=== PATIENT | male | born 1945 | race Caucasian/White ===

== ENCOUNTER → 2020-04-12 10:05 | Outpatient (CLI) | payer MEDICARE, SELFPAY ==
--- NOTE | ~2020-04-12 | MR_ITS ---
EXAMINATION: MR knee LT wo con DATE: 04/12/2020 10:41 INDICATION: Left knee pain TECHNIQUE: Magnetic resonance imaging (MRI) of the left knee was performed without intravenous contra st. Sequences included coronal PD-weighted FSE, coronal PD-weighted FS FSE, sagittal T2-weighted FSE , sagittal PD-weighted FS FSE and axial PD weighted fat saturated FSE. COMPARISON: None. FINDINGS: Medial compartment: Complex tear of medial meniscal tear which includes both a longitudinal horizontal tear plane extendi ng to the inferior articular surface of the body and posterior horn as well as a vertical parrot-beak configuration tear plane at the medial meniscal body. Articular cartilage is normal. Lateral compartment: Lateral meniscus is normal. Small region of partial-thickness chondral fissuring at the posterior asp ect of the lateral tibial plateau underlying the posterior horn of the lateral meniscus. Patellofemoral compartment: Cartilage thickness is relatively preserved but with small region of deep fissuring at the lateral si de of the medial patellar facet with tiny focus of underlying subarticular edema. Similar the trochle ar cartilage is relatively preserved with very small region of fissuring with minimal underlying suba rticular edema at the cephalad margin of the lateral trochlea. Ligaments and tendons: Anterior and posterior cruciate ligaments are normal. The medial collateral ligament and fibular claudia ateral ligament complex are normal. The extensor mechanism is normal. The visualized medial and later al hamstring tendons as well as the iliotibial band are normal. Fluid: Physiologic amount of fluid in the joint space. No loose osteochondral bodies identified. Osseous/other: Normal marrow signal aside from the previous noted tiny foci of subarticular edema in the patellofemo ral compartment. Likely degenerative subarticular cystic change at the posterior medial head of the f ibula likely related to mild osteoarthritis at the proximal tibiofibular articulation. No fracture or pathologic marrow replacing process. IMPRESSION: 1. Complex medial meniscal tear. 2. 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 Reviewed, dictated and finalized at location B. PRESIDENT OF COMPLIANCE IMPRESSION: 1. Complex medial meniscal tear. 2. Minimal osteoarthritis with small region of moderate grade chondromalacia al zack the lateral tibial plateau and small regions of high-grade chondromalacia a t the medial patellar facet and lateral trochlea.
== END ==
PROVIDERS: PCP Emergency Medicine; Visit Provider Nurse Practitioner Family
DX: M25.562 Pain in left knee (principal); S83.232A Complex tear of medial meniscus, current injury, left knee, initial encounter; M17.12 Unilateral primary osteoarthritis, left knee; M94.262 Chondromalacia, left knee
CPT/HCPCS: 73721

== ENCOUNTER → 2020-05-06 01:53 | Outpatient (CLI) | payer MEDICARE, SELFPAY ==
[2020-05-06 20:23] LABS: SARS-CoV-2 RNA PCR Negative
== END ==
PROVIDERS: PCP Emergency Medicine; Visit Provider Orthopaedic Surgery
DX: Z01.812 Encounter for preprocedural laboratory examination (principal); Z20.822 Contact with and (suspected) exposure to COVID-19
CPT/HCPCS: C9803; U0003; U0005

== ENCOUNTER 2020-05-09 01:18 | Day surgery (SDC) | payer MEDICARE, SELFPAY ==
[2020-05-03 12:38] VITALS: BMI 25.1
--- NOTE | 2020-05-08 11:13 | WPDANESEPPF ---
Anes - Initial Pre Proc Eval Procedure: Operation Date: 05/09/20 12:00 Proposed Procedures p Left Knee Arthroscopy, Right Knee Injection Proceed As Indicated - Fred Jolley MD Date/Time: 05/08/20 11:13 Surgeon: Fred Jolley MD Pre Op Diagnosis: left knee medial meniscus tear, Right knee djd Patient Data Age: 74 Gender: M Height: 1.8 m Weight: 81.8 kg Allergies Allergy/AdvReac Type Severity Reaction Status Date / Time No Known Allergies Allergy Verified 05/09/20 10:08 Home Medications Medication Instructions Recorded Confirmed Type aspirin 325 mg tablet 325 mg PO DAILY 03/30/20 05/09/20 History calcium carbonate 400 mg calcium 800 mg PO DAILY 03/30/20 05/09/20 History (1,000 mg) chewable tablet cholecalciferol (vitamin D3) 25 25 mcg PO DAILY 03/30/20 05/09/20 History mcg (1,000 unit) capsule losartan 25 mg tablet 25 mg PO DAILY 03/30/20 05/09/20 History metoprolol tartrate 25 mg tablet 25 mg PO DAILY 03/30/20 05/09/20 History omega-3 fatty acids 1,000 mg 1,000 mg PO DAILY 03/30/20 05/09/20 History capsule chlorhexidine gluconate 4 % 1 applic TOPICAL ONCE #237 ml 04/20/20 Rx topical liquid [id number]-marbin-bosw 1 tablet PO DAILY 05/03/20 05/09/20 History [Glucosamine-Chondroitin 3X] rosuvastatin 20 mg PO HS 05/03/20 05/09/20 History [id number] 1 cap PO DAILY 05/03/20 05/09/20 History vitamin K2 100 mcg PO DAILY 05/03/20 05/09/20 History Patient hx anesthesia problems: none Family hx anesthesia problems: none PMFSH Past Medical History Medical History (Updated 05/08/20 @ 11:13 by Zheng Smith MD) Abnormality of heart beat CAD (coronary artery disease) Heart attack High cholesterol History of MRSA infection History of postoperative complication of surgical procedure Hypertension Left knee pain Light headedness Medial meniscus tear Osteoporosis Surgical History Surgical History (Updated 05/08/20 @ 11:13 by Zheng Smith MD) History of heart surgery S/P CABG (coronary artery bypass graft) Family History Family History Other Cerebrovascular accident Heart disease High cholesterol Hypertension Social History Social History Smoking packs per day: 1 Smoking cigarettes per day: 20.0 Years smoked: 6 Smoking pack-years: 6.00 Smoking status: Former smoker Smoking end date: 05/03/70 Alcohol intake: current Drinks per week: 4 Substance use: never Substance use type: does not use Living arrangements: with family Gender identity (if verbalized by the patient): Male Spiritual care concerns: No Anes - Eval Final PreProcedure Day of Procedure 05/08/20 11:13 Patient weight: normal Heart: regular rate and rhythm Lungs: clear to auscultation and normal air movement Airway: Mallampati scale class II Neurological: alert and oriented Last oral intake: >/= 8 hours ASA classification: III Emergent: no Anesthetic plan: proceed Anesthesia type and monitoring: general LMA Informed Consent: The patient's anesthetic plan and its attendant risks and benefits were discussed with the patient/family/POA. Questions were solicited and answers provided to the satisfaction of the patient/family/POA.
[2020-05-09] VITALS (7 sets, daily range): BP systolic 128–178; BP diastolic 65–108; PULSE 54–67; RESP 12–16; TEMP 35.8; O2SAT 98–100
--- NOTE | 2020-05-09 07:23 | WPDHPUPDATE1 ---
History and Physical Update Update Date/Time: 05/09/20 07:23 History and Physical has been reviewed, including an updated exam of the patient. There are NO changes in the patient's condition. Risks, benefits, and alternatives have been discussed and questions answered. Patient agrees to proceed with procedure.
--- NOTE | 2020-05-09 10:19 | SUR.PREOP ---
Dr. Smith and Dr. Jolley aware of left ring finger wedding ring unable to be removed. Patient has signed removal waiver.
[2020-05-09] MEDS: ACETAMINOPHEN 500 MG TABLET 1000 MG PO (10:25)
[2020-05-09] MEDS: CELECOXIB 200 MG CAPSULE PO (10:25)
[2020-05-09] MEDS: LACTATED RINGERS 1,000 ML 30 ML IV CONT ×2 (10:26→13:56)
--- NOTE | 2020-05-09 10:45 | SUR.PREOP ---
crutch training completed. printed instructions given to patient for reference.
[2020-05-09] MEDS: ceFAZolin 2 GM/D5W 50 ML 2 GM/50 ML BAG IVPB (12:34)
[2020-05-09] MEDS: BUPIVACAINE HCL 0.5% PF 30 ML VIAL INFILTRATE (12:52)
[2020-05-09] MEDS: BUPIVACAINE HCL 0.5% PF 30 ML VIAL 5 ML INFILTRATE (13:09)
[2020-05-09] MEDS: methylPREDNISolone ACETATE 80 MG/ML VIAL IM (13:09)
--- NOTE | 2020-05-09 13:53 | PM.PROC ---
Procedure Note - Detailed Date of procedure: 05/09/20 Pre-op diagnosis: left knee medial meniscus tear, Right knee djd Post-op diagnosis: same Procedure performed: LEFT KNEE SCOPE WITH PARTIAL MEDIAL MENISCECTOMY AND MAJOR SYNOVECTOMY Description of procedure: PATIENT WAS TAKEN TO THE OR. LEFT LEG WAS PREPPED AND DRAPED STERILE. TROCARS WERE PLACED IN THE USUAL FASHION. CAMERA WAS INTRODUCED. THERE WAS CHONDROMALACIA TO THE PATELLA FEMORAL JOINT. THERE WAS A LOT OF SYNOVITIS IN ALL COMPARTMENTS. THE MEDIAL COMPARTMENT SHOWED CHONDROMALACIA TO THE MEDIAL FEMORAL CONDYLE. A SHAVER WAS USED TO PREFORM A CHONDROPLASTY. THERE WAS A COMPLEX MEDIAL MENISCUS TEAR. THE TEAR WAS RESECTED WITH A BITER AND A SHAVER DOWN TO A SMOOTH BASE. ABOUT 25% OF THE MENISCUS WAS REMOVED. THE ACL WAS INTACT. THE PATELLO FEMORAL JOINT UNDERWENT CHONDROPLASTY. THERE WAS GRADE 3 CHONDROMALACIA IN MOST OF THE TROCHLEA AND PART OF THE PATELLA. SYNOVECTOMY WAS PREFORMED IN THE SUPERIOR MEDIAL COMPARTMENT. THE WOUNDS WERE APPROXIMATED WITH 4.0 NYLON. STERILE DRESSING WAS APPLIED. PATIENT WAS EXTUBATED. Anesthesia: GLMA Surgeon: Fred Jolley MD Estimated blood loss (mL): 5 Complications: No immediate complications Condition: stable Disposition: PACU
[2020-05-09] MEDS: oxyCODONE HCL (*CRX) 5 MG TAB IR PO (15:18)
--- NOTE | 2020-05-09 15:29 | SUR.PHASEII ---
DR. HAWKINS NOTIFIED RE: PATIENT'S ELEVATED BLOOD PRESSURES; OKAY'D TO GO HOME.
== END 2020-05-09 16:10 | disposition home or self-care (01) ==
PROVIDERS: PCP Emergency Medicine; Visit Provider Orthopaedic Surgery
PROC: (CPT 29870; principal; 2020-05-09 12:00)
DX: M23.92 Unspecified internal derangement of left knee (principal); M65.862 Other synovitis and tenosynovitis, left lower leg; I11.9 Hypertensive heart disease without heart failure; E78.00 Pure hypercholesterolemia, unspecified; M81.0 Age-related osteoporosis without current pathological fracture; Z87.891 Personal history of nicotine dependence; Z79.82 Long term (current) use of aspirin; I25.10 Atherosclerotic heart disease of native coronary artery without angina pectoris; M94.262 Chondromalacia, left knee
CPT/HCPCS: 29881; 29876; A9270; C9803; J0690; J1040; J1100; J2405; J2704; J3010; J7120; U0003; U0005

== ENCOUNTER 2021-02-27 08:28 | Emergency (ER) | payer MEDICARE, SELFPAY ==
--- NOTE | ~2021-02-27 | XR_ITS ---
EXAMINATION: XR chest 1V portable EXAM DATE: 02/27/2021 09:45 INDICATION: cough and sob . TECHNIQUE: Portable AP frontal chest x-ray was obtained. There is no prior study for comparison. FINDINGS: Sternotomy wires are present without findings to suggest sternal dehiscence. Patchy ill-def ined bibasilar atelectasis or pneumonia. No pneumothorax or pleural effusion. There are bony degenera tive changes. IMPRESSION: Patchy bilateral ill-defined atelectasis an/or pneumonia. Reviewed, dictated and finalized at location B. 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
[2021-02-27 08:40] VITALS: BP 154/94; PULSE 114; RESP 24; TEMP 37.1
[2021-02-27 09:36] LABS: Basophils Percent Auto 0.4 % (0.2-1.2); Eosinophils Absolute Auto 0.1 K/mm3 (0-0.3); Eosinophils Percent Auto 1.3 % (0-4.4); Hematocrit 38.1 % (42.0-52.0); Hemoglobin 12.8 g/dL (14.0-18.0); Immature Granulocyte Absolute 0.03 K/mm3 (0.00-0.031); Immature Granulocyte Percent A 0.4 % (0-0.5); Lymphocytes Percent Auto 10.7 % (18.3-44.2); Mean Corpuscular HGB Conc 33.6 g/dl (32-36); Mean Corpuscular Hemoglobin 30.9 pg (26-34); Monocytes Absolute Auto 1.2 K/mm3 (0.1-0.6); Monocytes Percent Auto 13.6 % (2.6-8.5); Neutrophils Absolute Auto 6.2 K/mm3 (1.3-6.7); Neutrophils Percent Auto 73.6 % (45.5-73.1); Platelet Count Result 185 k/mm3 (150-375); Red Blood Count 4.14 M/mm3 (4.6-6.20); Red Cell Distribution Width 13.6 % (11.5-14.5); White Blood Count 8.4 K/mm3 (4.5-10.0)
[2021-02-27 09:49] LABS: Alanine Aminotransferase 20 U/L (4-50); Albumin Level 3.9 g/dL (3.5-5.1); Alkaline Phosphatase 76 U/L (38-126); Anion Gap 6 mmol/L (8-16); Aspartate Amino Transferase 30 U/L (17-59); Bilirubin,Total 0.6 mg/dL (0.2-1.3); Blood Urea Nitrogen 18 mg/dL (9-20); Calcium 8.7 mg/dL (8.4-10.2); Carbon Dioxide 28 mmol/L (22-30); Chloride 102 mmol/L (98-107); Estimated Glomerular Filt Rate > 60; Glucose 112 mg/dL (65-110); Potassium 4.6 mmol/L (3.4-5.0); Sodium 136 mmol/L (137-145)
--- NOTE | 2021-02-27 10:15 | ED.GENADULT ---
HPI - General Adult General Chief complaint: Upper Respiratory Infection Stated complaint: cough Time Seen by Provider: 02/27/21 09:16 Source: patient Mode of arrival: ambulatory Limitations: no limitations History of Present Illness HPI narrative: Patient is a 75-year-old fully vaccinated male presenting with chief complaint cough, congestion, body aches that began last night. Patient reports that he presented to the emergency department as he thought that he can receive monoclonal antibodies. Patient denies fever, chest pain, shortness of breath, syncope, dizziness, palpitations, inability to eat or drink. Patient reports that he has had exposures positive for COVID recently. Patient denies any other emergent symptoms. Patient reports that he did not take his home medications including his beta-luís and blood pressure medications emergency room arrival. Related Data Home Medications Medication Instructions Recorded Confirmed aspirin 325 mg tablet 325 mg PO DAILY 03/30/20 05/25/20 calcium carbonate 400 mg calcium 800 mg PO DAILY 03/30/20 05/25/20 (1,000 mg) chewable tablet cholecalciferol (vitamin D3) 25 25 mcg PO DAILY 03/30/20 05/25/20 mcg (1,000 unit) capsule losartan 25 mg tablet 25 mg PO DAILY 03/30/20 05/25/20 metoprolol tartrate 25 mg tablet 25 mg PO DAILY 03/30/20 05/25/20 omega-3 fatty acids 1,000 mg 1,000 mg PO DAILY 03/30/20 05/25/20 capsule [id number]-[id number]-C-marbin-bosw 1 tablet PO DAILY 05/03/20 05/25/20 [Glucosamine-Chondroitin 3X] rosuvastatin 20 mg PO HS 05/03/20 05/25/20 [id number] 1 cap PO DAILY 05/03/20 05/25/20 vitamin K2 100 mcg PO DAILY 05/03/20 05/25/20 Allergies Allergy/AdvReac Type Severity Reaction Status Date / Time No Known Allergies Allergy Verified 02/27/21 08:49 Review of Systems Review of Systems: CONSTITUTIONAL: Denies fever, chills, or sweats. EYES: Denies visual changes, redness, or discharge. ENT: Reports rhinorrhea, congestion, denies sore throat, or otalgia. CARDIOVASCULAR: Denies chest pain, palpitations, or edema. RESPIRATORY: Reports cough denies dyspnea. GASTROINTESTINAL: Denies abdominal pain, nausea, vomiting, or diarrhea. GENITOURINARY: Denies dysuria or hematuria. SKIN: Denies rash or itching. MUSCULOSKELETAL: Denies back pain, joint pain, or myalgia. NEUROLOGIC: Denies headache, numbness, dizziness, or weakness. PSYCHIATRIC: Denies anxiety or depression. [facility] Past Medical History Medical History Abnormality of heart beat CAD (coronary artery disease) Heart attack High cholesterol History of MRSA infection History of postoperative complication of surgical procedure Hypertension Left knee pain Light headedness Medial meniscus tear Osteoporosis Surgical History Surgical History History of heart surgery S/P CABG (coronary artery bypass graft) Family History Family History Other Cerebrovascular accident Heart disease High cholesterol Hypertension Social History Social History Smoking packs per day: 1 Smoking cigarettes per day: 20.0 Years smoked: 6 Smoking pack-years: 6.00 Smoking status: Former smoker Smoking end date: 05/03/70 Alcohol intake: current Drinks per week: 4 Substance use: never Substance use type: does not use Gender identity (if verbalized by the patient): Male Spiritual care concerns: No Exam Narrative: GENERAL: Well-appearing, well-nourished, and in no acute distress. HEAD: Normocephalic, atraumatic. EYES: PERRLA and EOMI. CHEST: Clear to auscultation. No respiratory distress. No wheezes rales or rhonchi. Speaking in clear sentences without difficulty. Dry cough noted during exam. HEART: Regular rate and rhythm. No murmur heard. Normal periphera
[2021-02-27] MEDS: BENZONATATE 100 MG CAPSULE 200 MG PO (10:35)
[2021-02-27 10:42] VITALS: BP 128/73; PULSE 111; RESP 18; O2SAT 97
[2021-02-27 19:52] LABS: SARS-CoV-2 RNA PCR Positive
== END 2021-02-27 10:44 | disposition home or self-care (01) ==
PROVIDERS: Physician Assistant; Emergency Provider Emergency Medicine; PCP Emergency Medicine
DX: U07.1 COVID-19 (principal); I25.10 Atherosclerotic heart disease of native coronary artery without angina pectoris; I25.2 Old myocardial infarction; E78.00 Pure hypercholesterolemia, unspecified; Z86.14 Personal history of Methicillin resistant Staphylococcus aureus infection; I10 Essential (primary) hypertension; M81.0 Age-related osteoporosis without current pathological fracture; Z95.1 Presence of aortocoronary bypass graft; Z87.891 Personal history of nicotine dependence; Z79.82 Long term (current) use of aspirin; R91.8 Other nonspecific abnormal finding of lung field
CPT/HCPCS: 36415; 71045; 80053; 85025; 87804; 99283; A9270; C9803; U0003; U0005

== ENCOUNTER 2022-10-12 20:44 | Emergency (ER) | payer MEDICARE, SELFPAY ==
--- NOTE | ~2022-10-12 | CT_ITS ---
Non-contrast Head CT History: Status post fall Technique: Axial non-contrast imaging of the brain was performed. Dose reduction technique was used on this scan by utilizing automated exposure control and iterative reconstruction technique. The dose -length product (DLP) was 605.33 mGy-cm. Findings: There is no evidence of intracranial hemorrhage, mass lesion, or acute infarct. Brain par enchyma appears normal. The ventricles and subarachnoid spaces are normal in size. The calvarium ap pears normal. The visualized paranasal sinuses and mastoid air cells are clear. Impression: No significant abnormality seen. Reviewed, dictated and finalized at location . Impression: No significant abnormality seen.
--- NOTE | ~2022-10-12 | XR_ITS ---
Portable chest x-ray Comparison: 02/27/2021 Clinical History: Syncope Findings: There is mild bibasilar haziness. Calcified left basilar granuloma present. Cardiomediast inal silhouette is stable. Cardiac loop recorder present. Bones and soft tissues are unremarkable. Impression: Possible minimal bibasilar pulmonary edema. Cardiac loop recorder. Reviewed, dictated and finalized at location . Impression: Possible minimal bibasilar pulmonary edema. Cardiac loop recorder.
--- NOTE | ~2022-10-12 | CT_ITS ---
Noncontrast CT scan of the cervical spine Technique: Multiple contiguous axial [address] images of the cervical spine were obtained and rec onstructed in 2D sagittal and coronal planes on the acquisition scanner. Dose reduction technique was used on this scan by utilizing automated exposure control, adjustment of the mA and/or kV according to patient size. The dose-length product (DLP) was 596.76 mGy-cm. Clinical History: Pain Findings: No fracture identified. There is a minimal grade 1 retrolisthesis of C5 over C6.. There is mild degenerative disc changes C5-C6. There is probable mild bilateral neural foraminal narrowing at C5-C6. No prevertebral soft tissue swelling. Impression: No fracture or subluxation of the cervical spine. Reviewed, dictated and finalized at [facility]. Impression: No fracture or subluxation of the cervical spine.
[2022-10-12 20:41] VITALS: BP 139/79; PULSE 70; RESP 16; TEMP 37.2; O2SAT 97
--- NOTE | 2022-10-12 21:23 | ECG_ITS ---
Measurements Intervals Golf Rate: 78 P: 82 GA: 223 QRS: -17 QRSD: 109 T: 82 QT: 362 QTc: 414 Interpretive Statements SINUS RHYTHM WITH FIRST DEGREE AV BLOCK DELAYED PRECORDIAL R/S TRANSITION LEFT VENTRICULAR HYPERTROPHY WITH ST-T CHANGE INFERIOR INFARCT, AGE INDETERMINATE ABNORMAL ECG NO PREVIOUS ECG AVAILABLE FOR COMPARISON Electronically Signed On 10-13-2022 7:13:57 CDT by Kai Willis D.O.
[2022-10-12] MEDS: SODIUM CHLORIDE 0.9% IV 2,000 ML 999 ML IV CONT (21:40)
[2022-10-12] MEDS: TETANUS,DIPHTHERIA,AC PERTUSSIS ADULT (0.5 ML) BOOSTRIX IM (21:40)
[2022-10-12 21:51] VITALS: PULSE 74; RESP 15; O2SAT 100
[2022-10-12 22:04] LABS: Basophils Percent Auto 0.3 % (0.2-1.2); Eosinophils Absolute Auto 0.1 K/mm3 (0-0.3); Eosinophils Percent Auto 0.4 % (0-4.4); Hematocrit 40.3 % (42.0-52.0); Hemoglobin 13.5 g/dL (14.0-18.0); Immature Granulocyte Absolute 0.09 K/mm3 (0.00-0.031); Immature Granulocyte Percent A 0.6 % (0-0.5); Lymphocytes Absolute Auto 2.05 K/mm3 (0.9-3.2); Lymphocytes Percent Auto 12.9 % (18.3-44.2); Mean Corpuscular HGB Conc 33.5 g/dl (32-36); Mean Corpuscular Hemoglobin 31.9 pg (26-34); Mean Corpuscular Volume 95.3 fl (80-100); Mean Platelet Volume 9.8 fl (7.4-10.4); Monocytes Absolute Auto 1.8 K/mm3 (0.1-0.6); Monocytes Percent Auto 11.1 % (2.6-8.5); Neutrophils Absolute Auto 11.9 K/mm3 (1.3-6.7); Neutrophils Percent Auto 74.7 % (45.5-73.1); Platelet Count Result 196 k/mm3 (150-375); Red Blood Count 4.23 M/mm3 (4.6-6.20); Red Cell Distribution Width 13.4 % (11.5-14.5); White Blood Count 15.9 K/mm3 (4.5-10.0)
[2022-10-12 22:12] LABS: INR 1.1; Partial Thromboplastin Time 31.5 SECONDS (22.3-36.8); Prothrombin Time 15.1 Seconds (11.1-14.7)
[2022-10-12 22:15] LABS: Alanine Aminotransferase 30 U/L (6-50); Albumin Level 4.3 g/dL (3.5-5.1); Alkaline Phosphatase 57 U/L (38-126); Anion Gap 8 mmol/L (8-16); Aspartate Amino Transferase 35 U/L (17-59); Bilirubin,Total 0.5 mg/dL (0.2-1.3); Blood Urea Nitrogen 27 mg/dL (9-20); Calcium 9.3 mg/dL (8.4-10.2); Carbon Dioxide 30 mmol/L (22-30); Chloride 101 mmol/L (98-107); Estimated CRCL calculation 42 ml/min; Estimated Glomerular Filt Rate 49; Ethanol < 10 mg/dL (<10); Glucose 116 mg/dL (65-110); Magnesium 2.3 mg/dL (1.6-2.3); Potassium 4.8 mmol/L (3.4-5.0); Sodium 139 mmol/L (137-145)
[2022-10-12] MEDS: HYDROcodone/acetaminophen (*CRX) 5-325 MG TABLET 1 TAB PO (22:19)
[2022-10-12 22:23] LABS: NT Pro B Type Natriuretic Pept 348 pg/mL (19.9-100)
[2022-10-12 22:26] LABS: Troponin I < 0.012 ng/mL (0.000-0.034)
[2022-10-12 22:27] LABS: Appearance Urine Cloudy (Clear); Bacteria Urine None Seen /hpf; Bilirubin Urine Negative (Negative); Blood Urine Negative (Negative); Color Urine Yellow (Yellow); Glucose Urine UA Negative (Negative); Hyaline Casts Urine Present /lpf; Ketones Urine Trace mg/dL (Negative); Leukocyte Esterase Ur Negative LEU/UL (Negative); Nitrate Urine Negative (Negative); Non Pathogenic Casts >20; Protein Urine 1+ mg/dL (Negative); RBC Urine 0-2 /hpf (0-2); Specific Grav Ur 1.021 (1.001-1.035); Squamous Epithelial Cell Urine None seen /hpf (Few); Urobilinogen Urine 0.2 mg/dL (<2.0); WBC Urine 0-5 /hpf; pH Urine 5.5 (5.0-9.0)
[2022-10-12 22:28] LABS: Add Urine Microscopic? YES
--- NOTE | 2022-10-12 23:30 | ED.GENADULT ---
HPI - General Adult General Chief complaint: Fall Stated complaint: syncope Time Seen by Provider: 10/12/22 21:05 History of Present Illness HPI narrative: This is a 76-year-old male presenting ED with chief complaint of syncope. The patient was working on a transmission all day in his garage. It was 85? out. The patient was sweaty and exhausted the end of the day. While he was in the shower he started to feel faint and fell and And struck his head. He sustained a laceration to his forehead x2 and scalp. patient is on a Eliquis for AFib/a flutter. Patient was then getting ready to come the hospital and had another syncopal event when he tried to stand up from a chair. Patient is currently denying chest pain difficulty breathing, vision changes abdominal pain numbness tingling weakness in any extremity. Related Data Home Medications Medication Instructions Recorded Confirmed calcium carbonate 400 mg calcium 800 mg PO DAILY 03/30/20 07/16/22 (1,000 mg) chewable tablet (Antacid Ultra Strength) cholecalciferol (vitamin D3) 25 25 mcg PO DAILY 03/30/20 07/16/22 mcg (1,000 unit) capsule ubiquinol 200 mg-B12 5 mg-folic 1 cap PO DAILY 05/03/20 07/16/22 acid 0.8 mg-resveratrol 400 mg capsule vitamin K2 100 mcg capsule 100 mcg PO DAILY 05/03/20 07/16/22 aspirin 81 mg tablet,delayed 325 mg PO DAILY 01/15/22 07/16/22 release Allergies Allergy/AdvReac Type Severity Reaction Status Date / Time No Known Allergies Allergy Verified 10/12/22 20:54 [facility] Past Medical History Medical History Abnormality of heart beat CAD (coronary artery disease) Heart attack Heart disease High cholesterol History of MRSA infection History of postoperative complication of surgical procedure Hypertension Hypertension Left knee pain Light headedness Medial meniscus tear [place] (myocardial infarction) Osteoporosis Person under investigation for COVID-19 Surgical History Surgical History History of heart surgery S/P CABG (coronary artery bypass graft) Family History Family History Other Carcinoma of colon Cerebrovascular accident Heart disease High cholesterol Hypertension Social History Social History Smoking packs per day: 1 Smoking cigarettes per day: 20.0 Years smoked: 6 Smoking pack-years: 6.00 Smoking status: Former smoker Smoking end date: 05/03/70 Alcohol intake: current Drinks per week: 4 Alcohol use details: Beer and wine Substance use: never Substance use type: does not use Lack of Transportation: No Lack of Food: Never True Current Housing: I Have Housing Concerned About Future Housing: No Difficulty Paying Gas/Electric Bills: No Difficulty Paying for Meds: No Currently Unemployed: No Education: High School Diploma/GED Difficulty w/ Childcare or Family Care: No Living arrangements: with family Occupation/Education: retired Gender identity (if verbalized by the patient): Male Sexual Orientation (if Verbalized by the Patient): Straight or Heterosexual Spiritual care concerns: No Exam Narrative: APPEARANCE: No apparent distress. Head: 4 cm vertical laceration over the center the patient's forehead, 2.6 cm horizontal laceration over the patient's right forehead, 2 cm laceration over the left scalp, skin tear over the right scalp EYES: EOMI, NOSE: Atraumatic NECK: Trachea midline RESPIRATORY: No increased rate of breathing, clear to auscultation CARDIOVASCULAR: RRR, no peripheral edema ABDOMINAL: Non-distended in rebound MUSCULOSKELETAl: No obvious deformities NEURO: Alert. Cranial nerves 2-12 grossly intact. Sensation light touch, motor function cerebellar function intact for 4 extremities. Gait exam was normal. SKIN:: Warm,
[2022-10-13 01:10] LABS: Troponin I < 0.012 ng/mL (0.000-0.034)
== END 2022-10-13 02:00 | disposition home or self-care (01) ==
PROVIDERS: Emergency Provider Emergency Medicine; PCP Family Medicine
DX: S01.01XA Laceration without foreign body of scalp, initial encounter (principal); S01.81XA Laceration without foreign body of other part of head, initial encounter; E86.0 Dehydration; R55 Syncope and collapse; I48.91 Unspecified atrial fibrillation; I25.10 Atherosclerotic heart disease of native coronary artery without angina pectoris; I11.9 Hypertensive heart disease without heart failure; I25.2 Old myocardial infarction; Z79.01 Long term (current) use of anticoagulants; Z87.891 Personal history of nicotine dependence; Z23 Encounter for immunization; Z79.899 Other long term (current) drug therapy; Z95.1 Presence of aortocoronary bypass graft; W18.2XXA Fall in (into) shower or empty bathtub, initial encounter
CPT/HCPCS: 12001; 12013; 36415; 70450; 71045; 72125; 80053; 80307; 81001; 83735; 83880; 84484; 85025; 85610; 85730; 90471; 90715; 93005; 96360; 96361; 99284; A9270; J7030

== ENCOUNTER 2023-07-02 09:25 | Outpatient (CLI) | payer MEDICARE, SELFPAY ==
--- NOTE | 2023-07-02 11:30 | NEURO_ITS ---
Impression: # Complains of numbness of left hand. Not diabetic. # Left ulnar distal neuropathy. # Borderline left ulnar neuropathy across the elbow. # Needle/EMG exam mildly neurogenic in proximal muscles as well (Deltoid and Triceps) # Higher involvement needs to be ruled out; MRI C-spine suggested. Nerve Conduction Studies Anti Sensory Summary Table Stim Site NR Peak (ms) P-T Amp (?V) Site1 Site2 Delta-P (ms) Dist (cm) Franky (m/s) Left Median Anti Sensory (2-3nd Digit) Wrist 3.3 24.2 Wrist 2-3nd Digit 3.3 14.0 42 Wrist 3.7 28.9 Wrist 2-3nd Digit 3.3 14.0 42 Left Radial Anti Sensory (Base 1st Digit) Wrist 2.2 13.4 Wrist Base 1st Digit 2.2 0.0 Left Ulnar Anti Sensory (5th Digit) Wrist 4.2 16.2 Wrist 5th Digit 4.2 14.0 33 Motor Summary Table Stim Site NR Onset (ms) O-P Amp (mV) Site1 Site2 Delta-0 (ms) Dist (cm) Franky (m/s) Left Median Motor (Abd Poll Brev) Wrist 3.6 3.4 Elbow Wrist 6.2 33.0 53 Elbow 9.8 2.9 Left Ulnar Motor (Abd Dig Minimi) Wrist 2.9 4.9 A Elbow Wrist 6.6 33.0 50 A Elbow 9.5 4.2 B Elbow Wrist 4.5 23.0 51 B Elbow 7.4 2.8 F Wave Studies NR F-Lat (ms) L-R F-Lat (ms) Left Median (Mrkrs) (Abd Poll Brev) 31.11 Left Ulnar (Mrkrs) (Abd Dig Min) 31.23 EMG Side Muscle Nerve Root Ins Act Fibs Amp Dur Recrt Comment Left 1stDorInt Ulnar C8-T1 Nml Nml Nml >12ms +1 Left Ext Indicis Radial (Post Int) C7-8 Nml Nml Nml Nml Nml Left Ext Digitorum Radial (Post Int) C7-8 Nml Nml Nml Nml Nml Left BrachioRad Radial C5-6 Nml Nml Nml Nml Nml Left PronatorTeres Median C6-7 Nml Nml Nml Nml Nml Left Abd Poll Brev Median C8-T1 Nml Nml Nml Nml Nml Left ABD Dig Min Ulnar C8-T1 Nml Nml Nml >12ms +1 Left Biceps Musculocut C5-6 Nml Nml Nml >12ms +1 Left Triceps Radial C6-7-8 Nml Nml Nml >12ms +1 Left Deltoid Axillary C5-6 Nml Nml Nml >12ms +1 MTDD
== END 2023-07-02 09:26 | disposition home or self-care (01) ==
LOC: ANHNEURO 09:27
PROVIDERS: PCP Family Medicine; Visit Provider Plastic Surgery
DX: G56.22 Lesion of ulnar nerve, left upper limb (principal); R94.131 Abnormal electromyogram [EMG]
CPT/HCPCS: 95886; 95909